=== PATIENT | male | born 1980 | race Caucasian/White ===

== ENCOUNTER 2016-10-01 11:22 | Emergency (ER) | payer MEDICAID ==
[2016-10-01] MEDS ORDERED: Lidocaine 1% with EPINEPHrine 1:100,000 20 ML MDV INJECT ONE (11:47)
[2016-10-01] MEDS ORDERED: Ondansetron 4 MG/2 ML SDV IVPUSH ONE ×2 (11:57→12:52)
[2016-10-01] MEDS ORDERED: Sodium Chloride 0.9% 1,000 ML IV ONE ×2 (11:57→13:30)
[2016-10-01] MEDS ORDERED: Ketorolac 30 MG/ML SDV IVPUSH ONE (11:57)
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
[2016-10-01 12:42] LABS: CHLORIDE,CL 106 mmol/L (98-110); SODIUM,NA 140 mmol/L (136-146)
[2016-10-01] MEDS ORDERED: HYDROmorphone 2 MG/ML Syringe IVPUSH ONE ×2 (12:52→13:30)
[2016-10-01] MEDS ORDERED: cefTRIAXone 2 GM in Premix Bag 1 BAG IV ONE (13:30)
[2016-10-01 15:34] VITALS: BP 107/64
== END 2016-10-01 14:36 | disposition home or self-care (01) ==
LOC: EEVIPCON 11:22 → MW.ED 11:22
DX: L02.413 Cutaneous abscess of right upper limb (principal); F17.210 Nicotine dependence, cigarettes, uncomplicated; Z88.1 Allergy status to other antibiotic agents
CPT/HCPCS: 10060; 36415; 80053; 80305; 85025; 87040; 87070; 93005; 96361; 96365; 96375; 96376; 99284; J0696; J1170; J1885; J2405; J7040; 87077; 87186; 99283

== ENCOUNTER 2016-10-03 15:09 | Emergency (ER) | payer MEDICAID ==
--- NOTE | 2016-10-03 15:26 | EDM.PDOC ---
ED HPI GENERAL MEDICAL PROBLEM - General Chief Complaint: Upper Extremity Injury/Pain Stated Complaint: SWOLLEN HAND AND ARM, AFTER DRAINED ABCESS Time Seen by Provider: 10/03/16 15:11 - History of Present Illness INITIAL COMMENTS - FREE TEXT/NARRATIVE: HISTORY AND PHYSICAL: History of present illness: Patient is a 36-year-old male presents with concern of right upper remedy pain he was recently seen for an abscess secondary to IV drug abuse he had incision and drainage of an abscess which he states markedly improved but he is concerned about continued pain no fever chills nausea vomiting or other complaints Review of systems: As per history of present illness and below otherwise all systems reviewed and negative. Past medical history: As per history of present illness and as reviewed below otherwise noncontributory. Surgical history: As per history of present illness and as reviewed below otherwise noncontributory. Social history: No reported history of drug or alcohol abuse. Family history: As per history of present illness and as reviewed below otherwise noncontributory. Physical exam: HEENT: Atraumatic, normocephalic, pupils reactive, negative for conjunctival pallor or scleral icterus, mucous membranes moist, throat clear, neck supple, nontender, trachea midline. Lungs: Clear to auscultation, breath sounds equal bilaterally, chest nontender. Heart: S1S2, regular, negative for clicks, rubs, or JVD. Abdomen: Soft, nondistended, nontender. Negative for masses or hepatosplenomegaly. Negative for costovertebral tenderness. Pelvis: Stable nontender. Genitourinary: Deferred. Rectal: Deferred. Extremities: Wound in the antecubital area was recently incised and drained looks very good there is no erythema no induration no fluctuance CMS neurovascular is unremarkable Neuro: Awake, alert, oriented. Cranial nerves II through XII unremarkable. Cerebellum unremarkable. Motor and sensory unremarkable throughout. Exam nonfocal. Diagnostics: X-ray right elbow forearm CBC CMP Therapeutics: None Impression: #1 history of IV drug abuse #2 wound recheck status post incision and drainage cutaneous abscess #3 right upper extremity pain Definitive disposition and diagnosis as appropriate pending reevaluation and review of above. - Related Data Allergies Allergy/AdvReac Type Severity Reaction Status Date / Time azithromycin [From Zithromax] Allergy Anaphylactic Verified 10/03/16 15:21 Shock Home Meds: Home Meds Sulfamethoxazole/Trimethoprim [Bactrim Ds Tablet] 1 each PO BID #20 tablet 10/01 [Rx] Past Medical History - Past Health History Medical/Surgical History: Denies Medical/Surgical History Social & Family History - Family History Family Medical History: Noncontributory - Tobacco Use Smoking Status *Q: Current Every Day Smoker Years of Tobacco use: 20 Packs/Tins Daily: 1 - Recreational Drug Use Recreational Drug Use: No Review of Systems - Review of Systems Review Of Systems: ROS reveals no pertinent complaints other than HPI. Trauma Exam - Physical Exam Exam: See Below (See dictation) Course - Orders/Labs/Meds Orders: Active Orders 24 hr Category Date Time Status Elbow 2V Rt [CR] Stat Exams 10/03/16 15:21 Ordered Forearm 2V Rt [CR] Stat Exams 10/03/16 15:21 Ordered CBC WITH AUTO DIFF [HEME] Stat Lab 10/03/16 15:21 Ordered COMPREHENSIVE METABOLIC PN,CMP [CHEM] Stat Lab 10/03/16 15:21 Ordered Departure - Departure Time of Disposition: 15:25 Disposition: Home, Self-Care 01 Condition: good Clinical Impression: Drug abuse, Wound check, abscess - Discharge Information Forms: ED Department Discharge Additional Instructions: The following information is given to patients seen in the emergency department who are being discharged to home. This information is to outline your options for follow-up care. We provide all patients seen in our emergency department with a follow-up referral. The need for follow-up, as well as the timing and circumstances, are variable depending upon the specifics of your emergency department visit. If you don't have a primary care physician on staff, we will provide you with a referral. We always advise you to contact your personal physician following an emergency department visit to inform them of the circumstance of the visit and for follow-up with them and/or the need for any referrals to a consulting specialist. The emergency department will also refer you to a specialist when appropriate. This referral assures that you have the opportunity for followup care with a specialist. All of these measure are taken in an effort to provide you with optimal care, which includes your followup. Under all circumstances we always encourage you to contact your private physician who remains a resource for coordinating your care. When calling for followup care, please make the office aware that this follow-up is from your recent emergency room visit. If for any reason you are refused follow-up, please contact the [facility] emergency department at and asked to speak to the emergency department charge nurse. ESTEBAN [facility] [address] [place] [id number] Continue current meds followup primary medical doctor in our clinic above as discussed return as needed as discussed - My Orders Last 24 Hours: My Active Orders 10/03/16 15:21 Elbow 2V Rt [CR] Stat Forearm 2V Rt [CR] Stat CBC WITH AUTO DIFF [HEME] Stat COMPREHENSIVE METABOLIC PN,CMP [CHEM] Stat - Assessment/Plan Last 24 Hours: My Active Orders 10/03/16 15:21 Elbow 2V Rt [CR] Stat Forearm 2V Rt [CR] Stat CBC WITH AUTO DIFF [HEME] Stat COMPREHENSIVE METABOLIC PN,CMP [CHEM] Stat
[2016-10-03 16:09] LABS: CHLORIDE,CL 109 mmol/L (98-110); SODIUM,NA 141 mmol/L (136-146)
[2016-10-03 16:29] VITALS: BP 133/79
--- NOTE | 2016-10-07 09:58 | CR ---
EXAM DATE: 10/03/16 PATIENT'S AGE: 36 Patient: FEDE ABDALLA Facility: [place], [place] Site . Site : 1980 Study: XRay Extremity Right Forearm [id number]/26/[id number] 3:59:54 PM Ordering Physician: Alice Bell Final Report: RIGHT ELBOW AND FOREARM INDICATION: Abscess drainage 2 days ago. Increased pain. COMPARISON: None. FINDINGS/IMPRESSION: Right elbow, 2 views and right forearm, 2 views. No acute fracture, dislocation, or other acute osseous abnormality identified at the right elbow or involving the right forearm. No evidence of osteomyelitis. No findings to suggest an elbow joint effusion. No soft tissue gas collections. Incidental minimal spurring at the triceps tendon insertion on the olecranon and postoperative changes involving the right 5th metacarpal. Dictated by Domenico Stratton MD @ 10/03/2016 4:12:15 PM Dictated by: Domenico Stratton MD @ 10/03/2016 16:13:26 (Electronic Signature) Report Signed by Proxy. EZE
--- NOTE | 2016-10-07 09:59 | CR ---
EXAM DATE: 10/03/16 PATIENT'S AGE: 36 Patient: FEDE ABDALLA Facility: [place], [place] Site . Site : 1980 Study: XRay Extremity Right Elbow [id number]/26/[id number] 4:01:11 PM Ordering Physician: Alice Bell Final Report: RIGHT ELBOW AND FOREARM INDICATION: Abscess drainage 2 days ago. Increased pain. COMPARISON: None. FINDINGS/IMPRESSION: Right elbow, 2 views and right forearm, 2 views. No acute fracture, dislocation, or other acute osseous abnormality identified at the right elbow or involving the right forearm. No evidence of osteomyelitis. No findings to suggest an elbow joint effusion. No soft tissue gas collections. Incidental minimal spurring at the triceps tendon insertion on the olecranon and postoperative changes involving the right 5th metacarpal. Dictated by Domenico Stratton MD @ 10/03/2016 4:12:15 PM Dictated by: Domenico Stratton MD @ 10/03/2016 16:13:07 (Electronic Signature) Report Signed by Proxy. EZE
== END 2016-10-03 16:27 | disposition home or self-care (01) ==
LOC: MW.ED 15:09
DX: L02.413 Cutaneous abscess of right upper limb (principal); Z51.89 Encounter for other specified aftercare; Z87.898 Personal history of other specified conditions; F17.210 Nicotine dependence, cigarettes, uncomplicated; Z88.1 Allergy status to other antibiotic agents
CPT/HCPCS: 36415; 73070-26-RT; 73070-RT; 73090-26-RT; 73090-RT; 80053; 85025; 99282; 99283

== ENCOUNTER 2016-10-18 18:02 | Emergency (ER) | payer MEDICAID ==
[2016-10-18] MEDS ORDERED: Ketorolac 30 MG/ML SDV IVPUSH ONE (18:19)
[2016-10-18] MEDS ORDERED: Prochlorperazine 10 MG/2 ML SDV IM ONE (18:19)
[2016-10-18] MEDS ORDERED: Sodium Chloride 0.9% 2.5 ML Syringe FLUSH PRN (18:19)
[2016-10-18] MEDS ORDERED: diphenhydrAMINE 50 MG/ML SDV IVPUSH ONE (18:19)
[2016-10-18] MEDS ORDERED: Sodium Chloride 0.9% 1,000 ML IV ONE (18:19)
[2016-10-18] MEDS ORDERED: Sodium Chloride 0.9% 10 ML Syringe FLUSH PRN (18:19)
--- NOTE | 2016-10-18 18:24 | EDM.PDOC ---
ED HPI GENERAL MEDICAL PROBLEM - General Chief Complaint: Headache Stated Complaint: PT HAS MIGRAINE Time Seen by Provider: 10/18/16 18:20 Source of Information: Reports: Patient History Limitations: Reports: No Limitations - History of Present Illness INITIAL COMMENTS - FREE TEXT/NARRATIVE: HISTORY AND PHYSICAL: []36-year-old male presenting with headache from the right occipital extending around his ear to the back of his right eye History of Present Illness: []Headache started this morning and has gotten worse Has been vomiting Light hurts his eyes Patient has history of drug abuse states that he is now been clean for the last month He states he has a job now at [employer] Review of Systems: As per history of present illness and below otherwise all systems reviewed and negative. Past medical history: As per history of present illness and as reviewed below otherwise noncontributory. Surgical history: As per history of present illness and as reviewed below otherwise noncontributory. Social history: No reported history of drug or alcohol abuse. Family history: As per history of present illness and as reviewed below otherwise noncontributory. Physical exam: Alert oriented answering questions appropriately, he is photophobic. HEENT: Atraumatic, normocehpalic, pupils reactive, negative for conjunctival pallor or scleral icterus, mucous membranes dry, throat clear, neck supple, nontender, trachea midline. Disc is sharp. No hemorrhage noted posteriorly. Vein to Artery ratio is appropriate Lungs: Clear to auscultation, breath sounds equal bilaterally, chest non tender. Heart: S1S2, regular, negative for clicks, rubs, or JVD. Abdomen: Soft, nondistended, nontender. Negative for masses or hepatossplenmegaly. Negative for costovertebral tenderness. Pelvis: Deferred. Genitourinary: Deferred. Rectal: Deferred Extremities: Atraumatic, negative for cords or calf pain. Well-healed scars and old abscess to arms no new track mohamud are noted. Neurovascular unremarkable. Neuro: Awake, alert, oriented. Cranial nerves II through XII unremarkable. Cerebellum unremarkable. Motor and sensory unremarkable throughout. Exam nonfocal. Patient no longer has nausea is relaxing more will give him some Ativan and then send him home he may take Excedrin Migraine as directed on the bottle Diagnostics: [] Therapeutics: [1 L normal saline, Compazine, Toradol and Benadryl,Ativan,] Impression: [Migraine headache] Plan: [Home rest Excedrin Migraine on the bottle ] Definitive disposition and diagnosis as appropriate pending reevaluation and review of above. Onset: Today, Sudden Duration: Hour(s): Location: Reports: Head Quality: Reports: Throbbing Improves with: Reports: None Worsens with: Reports: None Associated Symptoms: Reports: Nausea/Vomiting Treatments CODE AND TEST CLERK: Reports: Aspirin headache Pain Score (Numeric/FACES): 8 - Related Data Allergies Allergy/AdvReac Type Severity Reaction Status Date / Time azithromycin [From Zithromax] Allergy Anaphylactic Verified 10/18/16 18:10 Shock grapefruit Allergy Swelling Verified 10/18/16 18:10 Home Meds: Home Meds . [No Known Home Meds] 10/18/16 [History] Past Medical History - Past Health History Medical/Surgical History: Denies Medical/Surgical History HEENT History: Reports: None Cardiovascular History: Reports: None Respiratory History: Reports: None Gastrointestinal History: Reports: None Genitourinary History: Reports: None Musculoskeletal History: Reports: Fracture Neurological History: Reports: None Psychiatric History: Reports: Anxiety, PTSD Endocrine/Metabolic History: Reports: None Hematologic History: Reports: None Immunologic History: Reports: None Oncologic (Cancer) History: Reports: None Dermatologic History: Reports: None - Infectious Disease History Infectious Disease History: Reports: None - Past Surgical History Head Surgeries/Procedures: Reports: None Musculoskeletal Surgical History: Reports: ORIF Social & Family History - Family History Family Medical History: Noncontributory - Tobacco Use Smoking Status *Q: Current Every Day Smoker Years of Tobacco use: 20 Packs/Tins Daily: 0.5 - Caffeine Use Caffeine Use: Reports: Coffee, Soda - Recreational Drug Use Recreational Drug Use: Yes Drug Use in Last 12 Months: Yes Recreational Drug Type: Reports: Methamphetamine ED ROS GENERAL - Review of Systems Review Of Systems: ROS reveals no pertinent complaints other than HPI. - Physical Exam Exam: See Below (see dictation) Course - Vital Signs Last Recorded V/S: Last Vital Signs Temp 36.1 C 10/18/16 18:10 Pulse 86 10/18/16 18:10 Resp 16 10/18/16 18:10 BP 123/81 10/18/16 18:10 Pulse Ox 98 10/18/16 18:10 - Orders/Labs/Meds Orders: Active Orders 24 hr Category Date Time Status LORazepam [Ativan] Med 10/18/16 18:52 Once 1 mg IVPUSH ONETIME ONE Sodium Chloride 0.9% [Normal Saline] 1,000 ml Med 10/18/16 18:19 Ordered IV STAT Sodium Chloride 0.9% [Saline Flush] Med 10/18/16 18:19 Ordered 10 ml FLUSH ASDIRECTED PRN Sodium Chloride 0.9% [Saline Flush] Med 10/18/16 18:19 Ordered 2.5 ml FLUSH ASDIRECTED PRN Saline Lock Insert [OM.PC] Stat Oth 10/18/16 18:19 Ordered Medication Orders Sodium Chloride (Normal Saline) 1,000 mls @ 999 mls/hr IV STAT ONE Stop: 10/18/16 19:19 Last Admin: 10/18/16 18:23 Dose: 999 mls/hr Lorazepam (Ativan) 1 mg IVPUSH ONETIME ONE Stop: 10/18/16 18:53 Sodium Chloride (Saline Flush) 10 ml FLUSH ASDIRECTED PRN PRN Reason: Keep Vein Open Sodium Chloride (Saline Flush) 2.5 ml FLUSH ASDIRECTED PRN PRN Reason: Keep Vein Open Meds: Medications Generic Name Dose Route Start Last Admin Trade Name Freq PRN Reason Stop Dose Admin Sodium Chloride 1,000 mls @ 999 mls/hr 10/18/16 18:19 10/18/16 18:23 Normal Saline IV 10/18/16 19:19 999 mls/hr STAT ONE Administration Lorazepam 1 mg 10/18/16 18:52 Ativan IVPUSH 10/18/16 18:53 ONETIME ONE Sodium Chloride 10 ml 10/18/16 18:19 Saline Flush FLUSH ASDIRECTED PRN Keep Vein Open Sodium Chloride 2.5 ml 10/18/16 18:19 Saline Flush FLUSH ASDIRECTED PRN Keep Vein Open Discontinued Medications Generic Name Dose Route Start Last Admin Trade Name Freq PRN Reason Stop Dose Admin Diphenhydramine HCl 50 mg 10/18/16 18:19 10/18/16 18:26 Benadryl IVPUSH 10/18/16 18:20 50 mg ONETIME ONE Administration Ketorolac Tromethamine 30 mg 10/18/16 18:19 10/18/16 18:30 Toradol IVPUSH 10/18/16 18:20 30 mg ONETIME ONE Administration Prochlorperazine Edisylate 10 mg 10/18/16 18:19 10/18/16 18:33 Compazine IM 10/18/16 18:20 10 mg ONETIME ONE Administration Departure - Departure Time of Disposition: 18:58 Disposition: Home, Self-Care 01 Condition: good Clinical Impression: Migraine - Discharge Information Instructions: Recurrent Migraine Headache, [id number] Forms: ED Department Discharge Additional Instructions: The following information is given to patients seen in the emergency department who are being discharged to home. This information is to outline your options for follow-up care. We provide all patients seen in our emergency department with a follow-up referral. The need for follow-up, as well as the timing and circumstances, are variable depending upon the specifics of your emergency department visit. If you don't have a primary care physician on staff, we will provide you with a referral. We always advise you to contact your personal physician following an emergency department visit to inform them of the circumstance of the visit and for follow-up with them and/or the need for any referrals to a consulting specialist. The emergency department will also refer you to a specialist when appropriate. This referral assures that you have the opportunity for followup care with a specialist. All of these measure are taken in an effort to provide you with optimal care, which includes your followup. Under all circumstances we always encourage you to contact your private physician who remains a resource for coordinating your care. When calling for followup care, please make the office aware that this follow-up is from your recent emergency room visit. If for any reason you are refused follow-up, please contact the [facility] emergency department at and asked to speak to the emergency department charge nurse. He may take Excedrin Migraine [id number] as directed on the bottle Off work note has been written for tonight Follow-up with her primary care provider - My Orders Last 24 Hours: My Active Orders 10/18/16 18:19 Sodium Chloride 0.9% [Normal Saline] 1,000 ml IV STAT Sodium Chloride 0.9% [Saline Flush] 10 ml FLUSH ASDIRECTED PRN Sodium Chloride 0.9% [Saline Flush] 2.5 ml FLUSH ASDIRECTED PRN Saline Lock Insert [OM.PC] Stat 10/18/16 18:52 LORazepam [Ativan] 1 mg IVPUSH ONETIME ONE - Assessment/Plan Last 24 Hours: My Active Orders 10/18/16 18:19 Sodium Chloride 0.9% [Normal Saline] 1,000 ml IV STAT Sodium Chloride 0.9% [Saline Flush] 10 ml FLUSH ASDIRECTED PRN Sodium Chloride 0.9% [Saline Flush] 2.5 ml FLUSH ASDIRECTED PRN Saline Lock Insert [OM.PC] Stat 10/18/16 18:52 LORazepam [Ativan] 1 mg IVPUSH ONETIME ONE
[2016-10-18] MEDS ORDERED: LORazepam 2 MG/ML MDV IVPUSH ONE (18:52)
[2016-10-18 21:12] VITALS: BP 133/82
== END 2016-10-18 19:20 | disposition home or self-care (01) ==
LOC: MW.ED 18:02
DX: G43.909 Migraine, unspecified, not intractable, without status migrainosus (principal); F17.210 Nicotine dependence, cigarettes, uncomplicated; Z88.1 Allergy status to other antibiotic agents; Z91.018 Allergy to other foods; Z98.890 Other specified postprocedural states
CPT/HCPCS: 96361; 96372; 96374; 96375; 99283; J0780; J1200; J1885; J2060; J7040

== ENCOUNTER 2017-03-21 12:49 | Emergency (ER) | payer SELFPAY ==
[2017-03-21 12:57] VITALS: BP 155/84
[2017-03-21] MEDS ORDERED: Lidocaine 2% Viscous Solution 15 ML Cup PO ONE (13:09)
[2017-03-21] MEDS ORDERED: Benzocaine 20% Topical Spray UD MUCMEM ONE (13:09)
--- NOTE | 2017-03-21 13:10 | EDM.PDOC ---
ED HPI GENERAL MEDICAL PROBLEM - General Chief Complaint: General Stated Complaint: ORAL ISSUES Time Seen by Provider: 03/21/17 13:05 Source of Information: Reports: Patient History Limitations: Reports: No Limitations - History of Present Illness INITIAL COMMENTS - FREE TEXT/NARRATIVE: History of present illness: [37-year-old male comes in with a fractured tooth and complaints of dental abscess. Patient indicates that he has pressure in his nose and that he feels that he has a significant abscess over the fractured tooth, which is in the left upper cheek area] Review of systems: As per history of present illness and below otherwise all systems reviewed and negative. Past medical history: As per history of present illness and as reviewed below otherwise noncontributory. Surgical history: As per history of present illness and as reviewed below otherwise noncontributory. Social history: No reported history of drug or alcohol abuse. Family history: As per history of present illness and as reviewed below otherwise noncontributory. Physical exam: HEENT: Atraumatic, normocephalic, pupils reactive, negative for conjunctival pallor or scleral icterus, mucous membranes moist, throat clear, neck supple, nontender, trachea midline. Lungs: Clear to auscultation, breath sounds equal bilaterally, chest nontender. Heart: S1S2, regular, negative for clicks, rubs, or JVD. Abdomen: Soft, nondistended, nontender. Negative for masses or hepatosplenomegaly. Negative for costovertebral tenderness. Pelvis: Stable nontender. Genitourinary: Deferred. Rectal: Deferred. Extremities: Atraumatic, negative for cords or calf pain. Neurovascular unremarkable. Neuro: Awake, alert, oriented. Cranial nerves II through XII unremarkable. Cerebellum unremarkable. Motor and sensory unremarkable throughout. Exam nonfocal. Global assessment is benign save the subjective complaint as noted in history of present illness Diagnostics: [] Therapeutics: [] Impression: [Dental caries, dental fractures] Plan: [Dental balls antibiotics] Definitive disposition and diagnosis as appropriate pending reevaluation and review of above. left upper dental Pain Score (Numeric/FACES): 9 - Related Data Allergies Allergy/AdvReac Type Severity Reaction Status Date / Time azithromycin [From Zithromax] Allergy Anaphylactic Verified 03/21/17 12:57 Shock grapefruit Allergy Swelling Verified 03/21/17 12:57 Home Meds: Home Meds Amoxicillin/Potassium Clav [Augmentin 875-125 Tablet] 1 each PO BID #20 tablet 03/21/17 [Rx] Past Medical History - Past Health History Medical/Surgical History: Denies Medical/Surgical History HEENT History: Reports: None Cardiovascular History: Reports: None Respiratory History: Reports: None Gastrointestinal History: Reports: None Genitourinary History: Reports: None Musculoskeletal History: Reports: Fracture Neurological History: Reports: None Psychiatric History: Reports: Anxiety, PTSD Endocrine/Metabolic History: Reports: None Hematologic History: Reports: None Immunologic History: Reports: None Oncologic (Cancer) History: Reports: None Dermatologic History: Reports: None - Infectious Disease History Infectious Disease History: Reports: Chicken Pox - Past Surgical History Head Surgeries/Procedures: Reports: None Musculoskeletal Surgical History: Reports: ORIF Other Musculoskeletal Surgeries/Procedures:: R 5th metacarpal Social & Family History - Family History Family Medical History: Noncontributory - Tobacco Use Smoking Status *Q: Current Every Day Smoker Years of Tobacco use: 22 Packs/Tins Daily: 1 - Caffeine Use Caffeine Use: Reports: Coffee, Soda - Recreational Drug Use Recreational Drug Use: Yes Drug Use in Last 12 Months: Yes Recreational Drug Type: Reports: Methamphetamine Recreational Drug Use Frequency: Not Used In Over 5 Months ED ROS GENERAL - Review of Systems Review Of Systems: See Below (See history of present illness) ED EXAM, GENERAL - Physical Exam Exam: See Below (See history of present illness) Course - Vital Signs Last Recorded V/S: Last Vital Signs Temp 35.0 C L 03/21/17 12:55 Pulse 116 H 03/21/17 12:55 Resp 20 03/21/17 12:55 BP 155/84 H 03/21/17 12:55 Pulse Ox 98 03/21/17 12:55 Departure - Departure Time of Disposition: 13:09 Disposition: Home, Self-Care 01 Condition: Good Clinical Impression: Dental abscess - Discharge Information Referrals: PCP,None [Primary Care Provider] - Additional Instructions: The following information is given to patients seen in the emergency department who are being discharged to home. This information is to outline your options for follow-up care. We provide all patients seen in our emergency department with a follow-up referral. The need for follow-up, as well as the timing and circumstances, are variable depending upon the specifics of your emergency department visit. If you don't have a primary care physician on staff, we will provide you with a referral. We always advise you to contact your personal physician following an emergency department visit to inform them of the circumstance of the visit and for follow-up with them and/or the need for any referrals to a consulting specialist. The emergency department will also refer you to a specialist when appropriate. This referral assures that you have the opportunity for follow-up care with a specialist. All of these measure are taken in an effort to provide you with optimal care, which includes your follow-up. Under all circumstances we always encourage you to contact your private physician who remains a resource for coordinating your care. When calling for follow-up care, please make the office aware that this follow-up is from your recent emergency room visit. If for any reason you are refused follow-up, please contact the [facility] Emergency Department at and asked to speak to the emergency department charge nurse. Take medication as directed Follow-up with dentist I[facility]AN Return to ED as needed as discussed
== END 2017-03-21 13:26 | disposition home or self-care (01) ==
LOC: MW.ED 12:49
DX: K04.7 Periapical abscess without sinus (principal); K02.9 Dental caries, unspecified; K03.81 Cracked tooth; F17.210 Nicotine dependence, cigarettes, uncomplicated; Z88.1 Allergy status to other antibiotic agents
CPT/HCPCS: 99282; A9270

== ENCOUNTER 2017-07-05 03:49 | Emergency (ER) | payer MEDICAID ==
--- NOTE | 2017-07-05 04:14 | EDM.PDOC ---
ED HPI GENERAL MEDICAL PROBLEM - General Chief Complaint: General Stated Complaint: ABCESSED TOOTH Time Seen by Provider: 07/05/17 04:13 Source of Information: Reports: Patient - History of Present Illness INITIAL COMMENTS - FREE TEXT/NARRATIVE: HISTORY AND PHYSICAL: History of present illness: [Patient presents with dental pain 8 out of 10, he has dental caries with associated abscess, he states prior to bed tonight he was enjoying his normal state of health pain free, he awoke with 8 out of 10 pain and facial swelling He denies fever nausea vomiting chills sweats ] Review of systems: As per history of present illness and below otherwise all systems reviewed and negative. Past medical history: As per history of present illness and as reviewed below otherwise noncontributory. Surgical history: As per history of present illness and as reviewed below otherwise noncontributory. Social history: No reported history of drug or alcohol abuse. Family history: As per history of present illness and as reviewed below otherwise noncontributory. Physical exam: HEENT: Atraumatic, normocephalic, pupils reactive, negative for conjunctival pallor or scleral icterus, mucous membranes moist, throat clear, neck supple, nontender, trachea midline. Poor dentition with dental caries and abscess right upper Lungs: Clear to auscultation, breath sounds equal bilaterally, chest nontender. Heart: S1S2, regular, negative for clicks, rubs, or JVD. Abdomen: Soft, nondistended, nontender. Negative for masses or hepatosplenomegaly. Negative for costovertebral tenderness. Pelvis: Stable nontender. Genitourinary: Deferred. Rectal: Deferred. Extremities: Atraumatic, negative for cords or calf pain. Neurovascular unremarkable. Neuro: Awake, alert, oriented. Cranial nerves II through XII unremarkable. Cerebellum unremarkable. Motor and sensory unremarkable throughout. Exam nonfocal. Diagnostics: [Clinical] Therapeutics: [Morphine 2 mg IM Rocephin 1000 mg IM Cleocin 300 mg by mouth 3 times a day #30 no refill] Impression: [Dental abscess secondary to dental caries] Definitive disposition and diagnosis as appropriate pending reevaluation and review of above. Right Upper Tooth/Teeth Pain Score (Numeric/FACES): 8 - Related Data Allergies Allergy/AdvReac Type Severity Reaction Status Date / Time azithromycin [From Zithromax] Allergy Anaphylactic Verified 03/21/17 12:57 Shock grapefruit Allergy Swelling Verified 03/21/17 12:57 Home Meds: Home Meds . [No Known Home Meds] 07/05/17 [History] Past Medical History - Past Health History Medical/Surgical History: Denies Medical/Surgical History HEENT History: Reports: None Cardiovascular History: Reports: None Respiratory History: Reports: None Gastrointestinal History: Reports: None Genitourinary History: Reports: None Musculoskeletal History: Reports: Fracture Neurological History: Reports: None Psychiatric History: Reports: Anxiety, PTSD Endocrine/Metabolic History: Reports: None Hematologic History: Reports: None Immunologic History: Reports: None Oncologic (Cancer) History: Reports: None Dermatologic History: Reports: None - Infectious Disease History Infectious Disease History: Reports: Chicken Pox - Past Surgical History Head Surgeries/Procedures: Reports: None Musculoskeletal Surgical History: Reports: ORIF Other Musculoskeletal Surgeries/Procedures:: R 5th metacarpal Social & Family History - Family History Family Medical History: Noncontributory - Tobacco Use Smoking Status *Q: Current Every Day Smoker Years of Tobacco use: 22 Packs/Tins Daily: 0.5 - Caffeine Use Caffeine Use: Reports: Coffee - Recreational Drug Use Recreational Drug Use: No Drug Use in Last 12 Months: Yes Recreational Drug Type: Reports: Methamphetamine Recreational Drug Use Frequency: Not Used In Over 5 Months ED ROS GENERAL - Review of Systems Review Of Systems: ROS reveals no pertinent complaints other than HPI. ED EXAM, GENERAL - Physical Exam Exam: See Below Course - Vital Signs Last Recorded V/S: Last Vital Signs Temp 97.7 F 07/05/17 03:57 Pulse 95 07/05/17 03:57 Resp 20 07/05/17 03:57 BP 121/86 07/05/17 03:57 Pulse Ox 98 07/05/17 03:57 - Orders/Labs/Meds Orders: Active Orders 24 hr Category Date Time Status Morphine Med 07/05/17 04:32 Once 2 mg IM ONETIME ONE cefTRIAXone [Rocephin] 1,000 mg Med 07/05/17 04:33 Ordered Lidocaine 1% [Xylocaine-MPF 1%] 4 ml IM ONETIME Departure - Departure Time of Disposition: 04:34 Disposition: Home, Self-Care 01 Condition: Good Clinical Impression: Dental abscess - Discharge Information Referrals: PCP,None [Primary Care Provider] - Forms: ED Department Discharge Additional Instructions: Medication as prescribed Return if symptoms persist or worsen Follow-up with dentist as soon as possible Provide list of area dentists The following information is given to patients seen in the emergency department who are being discharged to home. This information is to outline your options for follow-up care. We provide all patients seen in our emergency department with a follow-up referral. The need for follow-up, as well as the timing and circumstances, are variable depending upon the specifics of your emergency department visit. If you don't have a primary care physician on staff, we will provide you with a referral. We always advise you to contact your personal physician following an emergency department visit to inform them of the circumstance of the visit and for follow-up with them and/or the need for any referrals to a consulting specialist. The emergency department will also refer you to a specialist when appropriate. This referral assures that you have the opportunity for follow-up care with a specialist. All of these measure are taken in an effort to provide you with optimal care, which includes your follow-up. Under all circumstances we always encourage you to contact your private physician who remains a resource for coordinating your care. When calling for follow-up care, please make the office aware that this follow-up is from your recent emergency room visit. If for any reason you are refused follow-up, please contact the [facility] emergency department at and asked to speak to the emergency department charge nurse. - My Orders Last 24 Hours: My Active Orders 07/05/17 04:32 Morphine 2 mg IM ONETIME ONE 07/05/17 04:33 cefTRIAXone [Rocephin] 1,000 mg Lidocaine 1% [Xylocaine-MPF 1%] 4 ml IM ONETIME - Assessment/Plan Last 24 Hours: My Active Orders 07/05/17 04:32 Morphine 2 mg IM ONETIME ONE 07/05/17 04:33 cefTRIAXone [Rocephin] 1,000 mg Lidocaine 1% [Xylocaine-MPF 1%] 4 ml IM ONETIME
[2017-07-05] MEDS ORDERED: Morphine 2 MG/ML Syringe IM ONE (04:32)
[2017-07-05] MEDS ORDERED: cefTRIAXone 1,000 MG in Lidocaine 1% 4 ML IM ONE (04:33)
[2017-07-05] MEDS ORDERED: HYDROmorphone 1 MG/ML Syringe IM ONE (05:08)
[2017-07-05 05:39] VITALS: BP 153/92
== END 2017-07-05 05:36 | disposition home or self-care (01) ==
LOC: MW.ED 03:49
DX: K04.7 Periapical abscess without sinus (principal); F17.210 Nicotine dependence, cigarettes, uncomplicated; K02.9 Dental caries, unspecified; Z88.1 Allergy status to other antibiotic agents; Z91.018 Allergy to other foods
CPT/HCPCS: 40800; 96372; 99282; J0696; J1170; J2270; 99283

== ENCOUNTER 2017-08-31 14:43 | Emergency (ER) | payer BC ==
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
--- NOTE | 2017-08-31 15:32 | CR ---
EXAMINATION: Left hand, third digit HISTORY: Injury COMPARISON: None TECHNIQUE: 3 views FINDINGS/IMPRESSION: There is no acute osseous abnormality, dislocation, or fracture. Bone mineraliza tion and joint spaces appear normal.
[2017-08-31 18:00] VITALS: BP 139/95
== END 2017-08-31 16:21 | disposition home or self-care (01) ==
LOC: MW.ED 14:43
DX: S67.193A Crushing injury of left middle finger, initial encounter (principal); F17.210 Nicotine dependence, cigarettes, uncomplicated; Z88.1 Allergy status to other antibiotic agents; Z91.018 Allergy to other foods; W23.1XXA Caught, crushed, jammed, or pinched between stationary objects, initial encounter
CPT/HCPCS: 73140-26-F2; 73140-F2; 99282; 99283

== ENCOUNTER 2018-01-05 09:11 | Emergency (ER) | payer BC ==
[2018-01-05] MEDS ORDERED: Sodium Chloride 0.9% 1,000 ML IV ONE (09:32)
[2018-01-05] MEDS ORDERED: Pantoprazole 40 MG Vial IVPUSH ONE (09:32)
[2018-01-05] MEDS ORDERED: Ondansetron 4 MG/2 ML SDV IVPUSH ONE (09:33)
[2018-01-05] MEDS ORDERED: Sodium Chloride 0.9% 2.5 ML Syringe FLUSH PRN (09:33)
[2018-01-05] MEDS ORDERED: Sodium Chloride 0.9% 10 ML Syringe FLUSH PRN (09:33)
[2018-01-05] MEDS ORDERED: Morphine 2 MG/ML Syringe IVPUSH ONE (09:37)
--- NOTE | 2018-01-05 09:37 | EDM.PDOC ---
ED HPI GENERAL MEDICAL PROBLEM - General Chief Complaint: Gastrointestinal Problem Stated Complaint: VOMITING Time Seen by Provider: 01/05/18 09:28 - History of Present Illness INITIAL COMMENTS - FREE TEXT/NARRATIVE: HISTORY AND PHYSICAL: History of present illness: The patient is a 37-year-old male who denies any previous GI history and presents with 3 days of nausea and vomiting with upper abdominal pain that has since progressed to inability to tolerate by mouth and diarrhea. The patient says that 3 days ago the symptoms started first with nausea and then vomiting of Sweet's that he had or the. He thought the vomitus looked brown but since that time his vomiting has not been brown black or bloody. He started having diarrhea the next day, 2 days ago, which is watery and profuse and is dark in color but no blood. The abdominal pain is mostly in the midline in the upper abdomen area and is not lower abdominal pain. He has no chest pain or shortness of breath and he has not taken any [id number] meds. He has no prior history of food intolerance or taking a lot of antacids for heartburn or reflux pain. The patient has no flank pain or urinary complaints. He denies recent alcohol use or drug use. 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 The patient does tell me that he does a lot of lifting and moving at his job and does take a lot of aspirin and nonsteroidals for discomfort Review of systems: As per history of present illness and below otherwise all systems reviewed and negative. Past medical history: As per history of present illness and as reviewed below otherwise noncontributory. Surgical history: As per history of present illness and as reviewed below otherwise noncontributory. Social history: No reported history of drug or alcohol abuse. Family history: As per history of present illness and as reviewed below otherwise noncontributory. Physical exam: General: Well-developed well-nourished thin man whose nontoxic but looks uncomfortable in the room. Vital signs were noted by me HEENT: Atraumatic, normocephalic, ve, negative for conjunctival pallor or scleral icterus, mucous membranes tacky, throat clear, neck supple, nontender, trachea midline. Lungs: Clear to auscultation, breath sounds equal bilaterally, chest nontender. No worker breathing wheezing or stridor Heart: S1S2, regular rate and rhythm no overt murmurs Abdomen: Soft, nondistended, there is discrete epigastric tenderness with palpation with some voluntary guarding but no involuntary guarding or rebound. Bowel sounds are normoactive Negative for masses or hepatosplenomegaly. Negative for costovertebral tenderness. Pelvis: Deferred Genitourinary: Deferred. Rectal: Exam was not performed but Hemoccult was performed on stool produced. Please see below Extremities: Atraumatic, full range of motion without deficits. Neurovascular unremarkable. Neuro: Awake, alert, oriented. Cranial nerves II through XII unremarkable. Cerebellum unremarkable. Motor and sensory unremarkable throughout. Exam nonfocal. Diagnostics: CBC CMP amylase lipase INR UA H. pylori abdominal and chest x-rays EtOH level Therapeutics: IV fluids Zofran and Protonix morphine Patient produced a stool sample here which was mushy and light brown in color and was Hemoccult negative. He does not let the diarrhea today. I will not send this for testing further Patient is a relative all testing results including his blood alcohol level and the need to refrain from alcohol and caffeine use when he is feeling ill. Also advised him to increase hydration and eat a bland diet. I will give him Zofran and Protonix and Bentyl for home and advised close follow-up in the clinic. The patient does feel much improved but says that he doesn't want to try a by mouth challenge she just wants to go home and go to sleep. Impression: Gastritis/vomiting and diarrhea, recent alcohol use stable Definitive disposition and diagnosis as appropriate pending reevaluation and review of above. Bilateral Abdominal Pain Score (Numeric/FACES): 8 - Related Data Allergies Allergy/AdvReac Type Severity Reaction Status Date / Time azithromycin [From Zithromax] Allergy Anaphylactic Verified 01/05/18 09:23 Shock grapefruit Allergy Swelling Verified 01/05/18 09:23 Home Meds: Home Meds . [No Known Home Meds] 07/05/17 [History] Past Medical History - Past Health History Medical/Surgical History: Denies Medical/Surgical History HEENT History: Reports: None Cardiovascular History: Reports: None Respiratory History: Reports: None Gastrointestinal History: Reports: None Genitourinary History: Reports: None Musculoskeletal History: Reports: Fracture Neurological History: Reports: None Psychiatric History: Reports: Anxiety, PTSD Endocrine/Metabolic History: Reports: None Hematologic History: Reports: None Immunologic History: Reports: None Oncologic (Cancer) History: Reports: None Dermatologic History: Reports: None - Infectious Disease History Infectious Disease History: Reports: Chicken Pox - Past Surgical History Head Surgeries/Procedures: Reports: None Musculoskeletal Surgical History: Reports: ORIF Other Musculoskeletal Surgeries/Procedures:: R 5th metacarpal Social & Family History - Family History Family Medical History: Noncontributory - Tobacco Use Smoking Status *Q: Current Every Day Smoker Years of Tobacco use: 22 Packs/Tins Daily: 0.5 - Caffeine Use Caffeine Use: Reports: None - Recreational Drug Use Recreational Drug Use: No ED ROS GENERAL - Review of Systems Review Of Systems: ROS reveals no pertinent complaints other than HPI. ED EXAM, GENERAL - Physical Exam Exam: See Below (See dictation) Course - Vital Signs Last Recorded V/S: Last Vital Signs Temp 36.4 C 01/05/18 09:23 Pulse 64 01/05/18 10:21 Resp 16 01/05/18 10:21 BP 111/78 01/05/18 10:21 Pulse Ox 97 01/05/18 10:21 - Orders/Labs/Meds Orders: Active Orders 24 hr Category Date Time Status Fecal Occult Blood Collection [RC] ASDIRECTED Care 01/05/18 09:59 Active DRUG SCREEN, URINE [URCHEM] Stat Lab 01/05/18 09:34 Ordered UA W/MICROSCOPIC [URIN] Stat Lab 01/05/18 09:34 Ordered Sodium Chloride 0.9% [Saline Flush] Med 01/05/18 09:33 Active 10 ml FLUSH ASDIRECTED PRN Sodium Chloride 0.9% [Saline Flush] Med 01/05/18 09:33 Active 2.5 ml FLUSH ASDIRECTED PRN Saline Lock Insert [OM.PC] Stat Oth 01/05/18 09:32 Ordered Medication Orders Sodium Chloride (Saline Flush) 10 ml FLUSH ASDIRECTED PRN PRN Reason: Keep Vein Open Last Admin: 01/05/18 09:42 Dose: 10 ml Sodium Chloride (Saline Flush) 2.5 ml FLUSH ASDIRECTED PRN PRN Reason: Keep Vein Open Last Admin: 01/05/18 09:42 Dose: 2.5 ml Labs: Laboratory Tests 01/05/18 01/05/18 01/05/18 Range/Units 09:34 09:34 09:47 WBC 6.69 (4.0-11.0) K/uL RBC 5.08 (4.50-5.90) M/uL Hgb 16.0 (13.0-17.0) g/dL Hct 46.2 (38.0-50.0) % MCV 90.9 (80.0-98.0) fL MCH 31.5 (27.0-32.0) pg MCHC 34.6 (31.0-37.0) g/dL RDW Std Deviation 50.4 (28.0-62.0) fl RDW Coeff of Fernanda 15 (11.0-15.0) % Plt Count 238 (150-400) K/uL MPV 9.80 (7.40-12.00) fL Neut % (Auto) 59.1 (48.0-80.0) % Lymph % (Auto) 26.2 (16.0-40.0) % [place] % (Auto) 13.5 (0.0-15.0) % Eos % (Auto) 0.9 (0.0-7.0) % Baso % (Auto) 0.3 (0.0-1.5) % Neut # (Auto) 4.0 (1.4-5.7) K/uL Lymph # (Auto) 1.8 (0.6-2.4) K/uL [place] # (Auto) 0.9 H (0.0-0.8) K/uL Eos # (Auto) 0.1 (0.0-0.7) K/uL Baso # (Auto) 0.0 (0.0-0.1) K/uL Nucleated RBC % 0.0 /100WBC Nucleated RBCs # 0 K/uL INR Sodium (136-148) mmol/L Potassium (3.5-5.1) mmol/L Chloride (98-107) mmol/L Carbon Dioxide (21.0-32.0) mmol/L BUN (7.0-18.0) mg/dL Creatinine (0.8-1.3) mg/dL Est Cr Clr Drug Dosing Estimated GFR (MDRD) ml/min Glucose (74-106) mg/dL Calcium (8.5-10.1) mg/dL Total Bilirubin (0.2-1.0) mg/dL AST (15-37) IU/L ALT (14-63) IU/L Alkaline Phosphatase (46-116) U/L Total Protein (6.4-8.2) g/dL Albumin (3.4-5.0) g/dL Globulin (2.0-3.5) g/dL Albumin/Globulin Ratio (1.3-2.8) Amylase (25-115) U/L Lipase (73-393) U/L Urine Color YELLOW Urine Appearance CLEAR Urine pH 5.5 (5.0-8.0) Ur Specific Bruning 1.025 (1.001-1.035) Urine Protein NEGATIVE (NEGATIVE) mg/dL Urine Glucose (UA) NEGATIVE (NEGATIVE) mg/dL Urine Ketones TRACE H (NEGATIVE) mg/dL Urine Occult Blood TRACE-LYSED (NEGATIVE) Urine Nitrite NEGATIVE (NEGATIVE) Urine Bilirubin NEGATIVE (NEGATIVE) Urine Urobilinogen 0.2 (<2.0) EU/dL Ur Leukocyte Esterase NEGATIVE (NEGATIVE) Urine RBC 0-1 (0-2/HPF) Urine WBC 0-1 (0-5/HPF) Ur Epithelial Cells FEW (NONE-FEW) Urine Bacteria FEW (NEGATIVE) Urine Mucus MODERATE (NONE-MOD) Urine Opiates Screen NEGATIVE (NEGATIVE) Ur Oxycodone Screen NEGATIVE (NEGATIVE) Urine Methadone Screen NEGATIVE (NEGATIVE) Ur Barbiturates Screen NEGATIVE (NEGATIVE) Ur Phencyclidine Scrn NEGATIVE (NEGATIVE) Ur Amphetamine Screen NEGATIVE (NEGATIVE) U Methamphetamines Scrn NEGATIVE (NEGATIVE) U Benzodiazepines Scrn NEGATIVE (NEGATIVE) U Cocaine Metab Screen NEGATIVE (NEGATIVE) U Marijuana (THC) Screen POSITIVE (NEGATIVE) Ethyl Alcohol mg/dL H. pylori IgG Antibody (NEG) 01/05/18 01/05/18 01/05/18 Range/Units 09:47 09:47 09:47 WBC (4.0-11.0) K/uL RBC (4.50-5.90) M/uL Hgb (13.0-17.0) g/dL Hct (38.0-50.0) % MCV (80.0-98.0) fL MCH (27.0-32.0) pg MCHC (31.0-37.0) g/dL RDW Std Deviation (28.0-62.0) fl RDW Coeff of Fernanda (11.0-15.0) % Plt Count (150-400) K/uL MPV (7.40-12.00) fL Neut % (Auto) (48.0-80.0) % Lymph % (Auto) (16.0-40.0) % Cam[place] % (Auto) (0.0-15.0) % Eos % (Auto) (0.0-7.0) % Baso % (Auto) (0.0-1.5) % Neut # (Auto) (1.4-5.7) K/uL Lymph # (Auto) (0.6-2.4) K/uL Cam[place] # (Auto) (0.0-0.8) K/uL Eos # (Auto) (0.0-0.7) K/uL Baso # (Auto) (0.0-0.1) K/uL Nucleated RBC % /100WBC Nucleated RBCs # K/uL INR 0.98 Sodium 138 (136-148) mmol/L Potassium 4.6 (3.5-5.1) mmol/L Chloride 104 (98-107) mmol/L Carbon Dioxide 27.4 (21.0-32.0) mmol/L BUN 11 (7.0-18.0) mg/dL Creatinine 0.9 (0.8-1.3) mg/dL Est Cr Clr Drug Dosing TNP Estimated GFR (MDRD) > 60.0 ml/min Glucose 99 (74-106) mg/dL Calcium 8.8 (8.5-10.1) mg/dL Total Bilirubin 0.2 (0.2-1.0) mg/dL AST 29 (15-37) IU/L ALT 16 (14-63) IU/L Alkaline Phosphatase 55 (46-116) U/L Total Protein 8.0 (6.4-8.2) g/dL Albumin 4.4 (3.4-5.0) g/dL Globulin 3.6 H (2.0-3.5) g/dL Albumin/Globulin Ratio 1.2 L (1.3-2.8) Amylase 61 (25-115) U/L Lipase 103 (73-393) U/L Urine Color Urine Appearance Urine pH (5.0-8.0) Ur Specific Bruning (1.001-1.035) Urine Protein (NEGATIVE) mg/dL Urine Glucose (UA) (NEGATIVE) mg/dL Urine Ketones (NEGATIVE) mg/dL Urine Occult Blood (NEGATIVE) Urine Nitrite (NEGATIVE) Urine Bilirubin (NEGATIVE) Urine Urobilinogen (<2.0) EU/dL Ur Leukocyte Esterase (NEGATIVE) Urine RBC (0-2/HPF) Urine WBC (0-5/HPF) Ur Epithelial Cells (NONE-FEW) Urine Bacteria (NEGATIVE) Urine Mucus (NONE-MOD) Urine Opiates Screen (NEGATIVE) Ur Oxycodone Screen (NEGATIVE) Urine Methadone Screen (NEGATIVE) Ur Barbiturates Screen (NEGATIVE) Ur Phencyclidine Scrn (NEGATIVE) Ur Amphetamine Screen (NEGATIVE) U Methamphetamines Scrn (NEGATIVE) U Benzodiazepines Scrn (NEGATIVE) U Cocaine Metab Screen (NEGATIVE) U Marijuana (THC) Screen (NEGATIVE) Ethyl Alcohol mg/dL H. pylori IgG Antibody NEGATIVE (NEG) 01/05/18 Range/Units 09:47 WBC (4.0-11.0) K/uL RBC (4.50-5.90) M/uL Hgb (13.0-17.0) g/dL Hct (38.0-50.0) % MCV (80.0-98.0) fL MCH (27.0-32.0) pg MCHC (31.0-37.0) g/dL RDW Std Deviation (28.0-62.0) fl RDW Coeff of Fernanda (11.0-15.0) % Plt Count (150-400) K/uL MPV (7.40-12.00) fL Neut % (Auto) (48.0-80.0) % Lymph % (Auto) (16.0-40.0) % [place] % (Auto) (0.0-15.0) % Eos % (Auto) (0.0-7.0) % Baso % (Auto) (0.0-1.5) % Neut # (Auto) (1.4-5.7) K/uL Lymph # (Auto) (0.6-2.4) K/uL [place] # (Auto) (0.0-0.8) K/uL Eos # (Auto) (0.0-0.7) K/uL Baso # (Auto) (0.0-0.1) K/uL Nucleated RBC % /100WBC Nucleated RBCs # K/uL INR Sodium (136-148) mmol/L Potassium (3.5-5.1) mmol/L Chloride (98-107) mmol/L Carbon Dioxide (21.0-32.0) mmol/L BUN (7.0-18.0) mg/dL Creatinine (0.8-1.3) mg/dL Est Cr Clr Drug Dosing Estimated GFR (MDRD) ml/min Glucose (74-106) mg/dL Calcium (8.5-10.1) mg/dL Total Bilirubin (0.2-1.0) mg/dL AST (15-37) IU/L ALT (14-63) IU/L Alkaline Phosphatase (46-116) U/L Total Protein (6.4-8.2) g/dL Albumin (3.4-5.0) g/dL Globulin (2.0-3.5) g/dL Albumin/Globulin Ratio (1.3-2.8) Amylase (25-115) U/L Lipase (73-393) U/L Urine Color Urine Appearance Urine pH (5.0-8.0) Ur Specific Bruning (1.001-1.035) Urine Protein (NEGATIVE) mg/dL Urine Glucose (UA) (NEGATIVE) mg/dL Urine Ketones (NEGATIVE) mg/dL Urine Occult Blood (NEGATIVE) Urine Nitrite (NEGATIVE) Urine Bilirubin (NEGATIVE) Urine Urobilinogen (<2.0) EU/dL Ur Leukocyte Esterase (NEGATIVE) Urine RBC (0-2/HPF) Urine WBC (0-5/HPF) Ur Epithelial Cells (NONE-FEW) Urine Bacteria (NEGATIVE) Urine Mucus (NONE-MOD) Urine Opiates Screen (NEGATIVE) Ur Oxycodone Screen (NEGATIVE) Urine Methadone Screen (NEGATIVE) Ur Barbiturates Screen (NEGATIVE) Ur Phencyclidine Scrn (NEGATIVE) Ur Amphetamine Screen (NEGATIVE) U Methamphetamines Scrn (NEGATIVE) U Benzodiazepines Scrn (NEGATIVE) U Cocaine Metab Screen (NEGATIVE) U Marijuana (THC) Screen (NEGATIVE) Ethyl Alcohol 22 mg/dL H. pylori IgG Antibody (NEG) Meds: Medications Generic Name Dose Route Start Last Admin Trade Name Freq PRN Reason Stop Dose Admin Sodium Chloride 10 ml 08/28/18 09:33 01/05/18 09:42 Saline Flush FLUSH 10 ml ASDIRECTED PRN Administration Keep Vein Open Sodium Chloride 2.5 ml 01/05/18 09:33 01/05/18 09:42 Saline Flush FLUSH 2.5 ml ASDIRECTED PRN Administration Keep Vein Open Discontinued Medications Generic Name Dose Route Start Last Admin Trade Name Rustamq PRN Reason Stop Dose Admin Sodium Chloride 1,000 mls @ 999 mls/hr 01/05/18 09:32 01/05/18 09:42 Normal Saline IV 01/05/18 10:32 999 mls/hr STAT ONE Administration Morphine Sulfate 2 mg 01/05/18 09:37 01/05/18 09:56 Morphine IVPUSH 01/05/18 09:38 2 mg ONETIME ONE Administration Ondansetron HCl 4 mg 01/05/18 09:33 01/05/18 09:41 Zofran IVPUSH 01/05/18 09:34 4 mg ONETIME ONE Administration Pantoprazole Sodium 80 mg 01/05/18 09:32 01/05/18 09:41 Protonix Iv IVPUSH 01/05/18 09:33 80 mg .BOLUS ONE Administration Departure - Departure Time of Disposition: 10:56 Disposition: Home, Self-Care 01 Condition: Good Clinical Impression: Vomiting, Diarrhea Gastritis Qualifiers: Gastritis type: other gastritis Chronicity: unspecified Gastritis bleeding: without bleeding Qualified Code(s): K29.60 - Other gastritis without bleeding - Discharge Information Referrals: PCP,None [Primary Care Provider] - Forms: ED Department Discharge Additional Instructions: The following information is given to patients seen in the emergency department who are being discharged to home. This information is to outline your options for follow-up care. We provide all patients seen in our emergency department with a follow-up referral. The need for follow-up, as well as the timing and circumstances, are variable depending upon the specifics of your emergency department visit. If you don't have a primary care physician on staff, we will provide you with a referral. We always advise you to contact your personal physician following an emergency department visit to inform them of the circumstance of the visit and for follow-up with them and/or the need for any referrals to a consulting specialist. The emergency department will also refer you to a specialist when appropriate. This referral assures that you have the opportunity for followup care with a specialist. All of these measure are taken in an effort to provide you with optimal care, which includes your followup. Under all circumstances we always encourage you to contact your private physician who remains a resource for coordinating your care. When calling for followup care, please make the office aware that this follow-up is from your recent emergency room visit. If for any reason you are refused follow-up, please contact the [facility] emergency department at and ask to speak to the emergency department charge nurse. [facility] Primary care- Internal Medicine and Family [address] [address] Please fill your prescription and take medications as directed. Avoid caffeine and alcohol and [id number] anti-inflammatory/aspirin use for the next 3 days. Please call and schedule follow-up appointment in our clinic for reevaluation and further care and return to ER as needed and as discussed. Eat bland bites and push hydration as we discussed - My Orders Last 24 Hours: My Active Orders 01/05/18 09:32 Saline Lock Insert [OM.PC] Stat 01/05/18 09:33 Sodium Chloride 0.9% [Saline Flush] 10 ml FLUSH ASDIRECTED PRN Sodium Chloride 0.9% [Saline Flush] 2.5 ml FLUSH ASDIRECTED PRN 01/05/18 09:34 DRUG SCREEN, URINE [URCHEM] Stat UA W/MICROSCOPIC [URIN] Stat 01/05/18 09:59 Fecal Occult Blood Collection [RC] ASDIRECTED - Assessment/Plan Last 24 Hours: My Active Orders 01/05/18 09:32 Saline Lock Insert [OM.PC] Stat 01/05/18 09:33 Sodium Chloride 0.9% [Saline Flush] 10 ml FLUSH ASDIRECTED PRN Sodium Chloride 0.9% [Saline Flush] 2.5 ml FLUSH ASDIRECTED PRN 01/05/18 09:34 DRUG SCREEN, URINE [URCHEM] Stat UA W/MICROSCOPIC [URIN] Stat 01/05/18 09:59 Fecal Occult Blood Collection [RC] ASDIRECTED
[2018-01-05 10:30] LABS: CHLORIDE,CL 104 mmol/L (98-107); SODIUM,NA 138 mmol/L (136-148)
--- NOTE | 2018-01-05 10:42 | CR ---
EXAMINATION: Chest and abdominal series HISTORY: Pain COMPARISON: None TECHNIQUE: PA chest and AP and upright views of the abdomen FINDINGS: The lungs are clear. No focal consolidation or pleural effusion. Cardiomediastinal silhouet te is normal. There is no free air under the diaphragm. There is a nonobstructive bowel gas pattern with a small am ount stool and gas within the colon and rectum. No definite nephrolithiasis.. No organomegaly. Visual ized osseous structures appear normal. IMPRESSION: No acute findings identified.
[2018-01-05 10:57] VITALS: BP 118/76
== END 2018-01-05 11:16 | disposition home or self-care (01) ==
LOC: MW.ED 09:11
DX: K29.60 Other gastritis without bleeding (principal); F17.210 Nicotine dependence, cigarettes, uncomplicated; Z91.018 Allergy to other foods; Z88.1 Allergy status to other antibiotic agents
CPT/HCPCS: 36415; 74022; 80053; 80305; 81001; 82150; 83690; 85025; 85610; 86677; 96361; 96374; 96375; 99284; C9113; G0480; J2270; J2405; J7040; 99283

== ENCOUNTER 2020-10-11 18:25 | Emergency (ER) | payer SELFPAY ==
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
[2020-10-11] MEDS ORDERED: Nicotine 21 MG/24 Hr Patch TRDERM ONE (18:42)
[2020-10-11 20:01] VITALS: BP 151/93; PULSE 130
== END 2020-10-11 20:01 | disposition home or self-care (01) ==
LOC: MW.ED 18:25
DX: T40.2X1A Poisoning by other opioids, accidental (unintentional), initial encounter (principal)
CPT/HCPCS: 99284; A9270

== ENCOUNTER 2021-04-18 10:45 | Emergency (ER) | payer SELFPAY ==
[2021-04-18] MEDS ORDERED: Acetaminophen/oxyCODONE 325-5 MG Tab PO ONE (11:14)
[2021-04-18] MEDS ORDERED: Benzocaine 20% Topical Spray UD MUCMEM ONE (11:14)
[2021-04-18] MEDS ORDERED: Lidocaine 2% Viscous Solution 15 ML Cup PO ONE (11:14)
--- NOTE | 2021-04-18 11:21 | EDM.PDOC ---
ED HPI GENERAL MEDICAL PROBLEM - General Chief Complaint: ENT Problem Stated Complaint: ABSCESS ON L SIDE OF MOUTH Time Seen by Provider: 04/18/21 10:47 Source of Information: Reports: Patient History Limitations: Reports: No Limitations - History of Present Illness INITIAL COMMENTS - FREE TEXT/NARRATIVE: HISTORY AND PHYSICAL: History of present illness: Patient is a 41-year-old male who presents emergency room today with concern of dental infection starting 2 hours prior to arrival to the emergency room. Patient states that 10 years ago he had a filling on the affected tooth and the filling fell out 2 weeks ago. Patient states that starting today, he started having swelling adjacent to the tooth. Patient states he understands he needs to follow-up with a dentist but came here to the emergency room today. Patient states he has been able to eat and drink but she was on the other side of his mouth. Denies any other associated symptoms. Patient denies fever, chills, chest pain, shortness of breath, or cough. Denies headache, neck stiff ness, change in vision, syncope, or near syncope. Denies nausea, vomiting, abdominal pain, diarrhea, constipation, or dysuria. Has not noted any blood in urine or stool. Patient has been eating and drinking appropriately. Review of systems: As per history of present illness and below otherwise all systems reviewed and negative. Past medical history: As per history of present illness and as reviewed below otherwise noncontributory. Surgical history: As per history of present illness and as reviewed below otherwise noncontributory. Social history: See social history for further information Family history: As per history of present illness and as reviewed below otherwise noncontributory. Physical exam: General: Patient is alert, oriented, and in no acute distress. Patient sitting comfortably on exam table. Vitals stable and reviewed by me. HEENT: Tooth #19 is fractured/eroded to the gumline with adjacent edema of the mandible with pain to palpation of this area. No obvious drainable abscess at this time. Otherwise, generalized poor dentition. Atraumatic, normocephalic, pupils equal and reactive bilaterally, negative for conjunctival pallor or scleral icterus, mucous membranes moist, throat clear, neck supple, nontender, trachea midline. No drooling or trismus noted. No meningeal signs. No hot potato voice noted. Lungs: Clear to auscultation, breath sounds equal bilaterally, chest nontender. Heart: S1S2, regular rate and rhythm without overt murmur Abdomen: Soft, nondistended, nontender. Negative for masses or hepatosplenomegaly. Negative for costovertebral tenderness. Pelvis: Stable nontender. Genitourinary: Deferred. Rectal: Deferred. Skin: Intact, warm, dry. No lesions or rashes noted. Extremities: Atraumatic, negative for cords or calf pain. Neurovascular unremarkable. Neuro: Awake, alert, oriented. Cranial nerves II through XII unremarkable. Cerebellum unremarkable. Motor and sensory unremarkable throughout. Exam nonfocal. Medical Decision Making: Signs and symptoms that would prompt return to the ED thoroughly discussed with patient. Discussed importance for follow-up with a dentist. Voices understanding and is agreeable to plan of care. Denies any further questions or concerns at this time. Diagnostics: None Therapeutics: Percocet tab Prescription: Augmentin, Tramadol (12 tabs) Impression: Dental infection Plan: 1. Please take medication as prescribed. [facility] Caution when taking tramadol as this medication does cause drowsiness and sedation. Do not take this medication while driving a vehicle or operating any heavy equipment as discussed. Caution when taking this medication outside of the home. 2. Tylenol and/or ibuprofen as directed and as needed for pain management. 3. "Tooth Balls" have been given to you; apply along the gumline every 2-3 hours as needed. Do not swallow these; external use only. 4. Follow-up with a dentist for definitive care. Return to the ED as needed and as discussed. Definitive disposition and diagnosis as appropriate pending reevaluation and review of above. Treatments ENZYME CHEMIST: Reports: NSAIDS L side mouth Pain Score (Numeric/FACES): 10 - Related Data Allergies Allergy/AdvReac Type Severity Reaction Status Date / Time azithromycin [From Zithromax] Allergy Anaphylactic Verified 04/18/21 10:50 Shock grapefruit Allergy Swelling Verified 04/18/21 10:50 Home Meds: Home Meds Amoxicillin/Potassium Clav [Augmentin 875-125 Tablet] 1 each PO BID 10 Days #20 tablet 04/18/21 [Rx] traMADol [Ultram] 50 mg PO Q6H PRN #12 tab 04/18/21 [Rx] Past Medical History - Past Health History Medical/Surgical History: Denies Medical/Surgical History HEENT History: Reports: None Cardiovascular History: Reports: None Respiratory History: Reports: None Gastrointestinal History: Reports: None Genitourinary History: Reports: None Musculoskeletal History: Reports: Fracture Neurological History: Reports: None Psychiatric History: Reports: Anxiety, PTSD Endocrine/Metabolic History: Reports: None Hematologic History: Reports: None Immunologic History: Reports: None Oncologic (Cancer) History: Reports: Lymphoma Dermatologic History: Reports: None - Infectious Disease History Infectious Disease History: Reports: Chicken Pox - Past Surgical History Head Surgeries/Procedures: Reports: None HEENT Surgical History: Reports: Oral Surgery Musculoskeletal Surgical History: Reports: ORIF Other Musculoskeletal Surgeries/Procedures:: R 5th metacarpal Oncologic Surgical History: Reports: None Social & Family History - Family History Family Medical History: No Pertinent Family History - Tobacco Use Tobacco Use Status *Q: Current Every Day Tobacco User Years of Tobacco use: 23 Packs/Tins Daily: 1 - Caffeine Use Caffeine Use: Reports: Coffee - Recreational Drug Use Recreational Drug Use: Yes Drug Use in Last 12 Months: Yes Recreational Drug Type: Reports: Marijuana/Hashish Recreational Drug Use Frequency: Weekly ED ROS GENERAL - Review of Systems Review Of Systems: Comprehensive ROS is negative, except as noted in HPI. ED EXAM, GENERAL - Physical Exam Exam: See Below (see dictation) Course - Vital Signs Last Recorded V/S: Last Vital Signs Temp 97.6 F 04/18/21 10:50 Pulse 96 04/18/21 10:50 Resp 20 04/18/21 10:50 BP 143/98 H 04/18/21 10:50 Pulse Ox 99 04/18/21 10:50 - Orders/Labs/Meds Meds: Medications Discontinued Medications Generic Name Dose Route Start Last Admin Trade Name Freq PRN Reason Stop Dose Admin Benzocaine 2 each 04/18/21 11:14 Benzocaine 20% Topical [place] Ud MUCMEM 04/18/21 11:15 ONETIME ONE Lidocaine HCl 15 ml 04/18/21 11:14 Lidocaine 2% Viscous Solution 15 Ml Cup PO 04/18/21 11:15 ONETIME ONE Oxycodone/Acetaminophen 1 tab 04/18/21 11:14 Acetaminophen/Oxycodone 325-5 Mg Tab PO 04/18/21 11:15 ONETIME ONE Departure - Departure Time of Disposition: 11:16 Disposition: Home, Self-Care 01 Clinical Impression: Dental infection - Discharge Information Prescriptions: Amoxicillin/Potassium Clav [Augmentin 875-125 Tablet] 1 each PO BID 10 Days #20 tablet traMADol [Ultram] 50 mg PO Q6H PRN #12 tab PRN Reason: Pain (Severe 7-10) Additional Instructions: The following information is given to patients seen in the emergency department who are being discharged to home. This information is to outline your options for follow-up care. We provide all patients seen in our emergency department with a follow-up referral. The need for follow-up, as well as the timing and circumstances, are variable depending upon the specifics of your emergency department visit. If you don't have a primary care physician on staff, we will provide you with a referral. We always advise you to contact your personal physician following an emergency department visit to inform them of the circumstance of the visit and for follow-up with them and/or the need for any referrals to a consulting specialist. The emergency department will also refer you to a specialist when appropriate. This referral assures that you have the opportunity for follow-up care with a specialist. All of these measure are taken in an effort to provide you with optimal care, which includes your follow-up. Under all circumstances we always encourage you to contact your private physician who remains a resource for coordinating your care. When calling for follow-up care, please make the office aware that this follow-up is from your recent emergency room visit. If for any reason you are refused follow-up, please contact the [facility] Emergency Department at and asked to speak to the emergency department charge nurse. [facility] [address] [place] [id number] [address] 1. Please take medication as prescribed. [facility] Caution when taking tramadol as this medication does cause drowsiness and sedation. Do not take this medication while driving a vehicle or operating any heavy equipment as discussed. Caution when taking this medication outside of the home. 2. Tylenol and/or ibuprofen as directed and as needed for pain management. 3. "Tooth Balls" have been given to you; apply along the gumline every 2-3 hours as needed. Do not swallow these; external use only. 4. Follow-up with a dentist for definitive care. Return to the ED as needed and as discussed. Sepsis Event Note (ED) - Evaluation Sepsis Screening Result: No Definite Risk - Focused Exam Vital Signs: Vital Signs Temp Pulse Resp BP Pulse Ox 04/18/21 10:50 97.6 F 96 20 143/98 H 99
[2021-04-18 11:27] VITALS: BP 129/93; PULSE 87
== END 2021-04-18 11:28 | disposition home or self-care (01) ==
LOC: MW.ED 10:45
DX: K04.7 Periapical abscess without sinus (principal); Z88.1 Allergy status to other antibiotic agents; Z91.018 Allergy to other foods; Z72.0 Tobacco use
CPT/HCPCS: 99282; A9270

== ENCOUNTER 2021-06-04 12:14 | Emergency (ER) | payer SELFPAY ==
[2021-06-04 13:24] VITALS: BP 141/91; PULSE 113
== END 2021-06-04 13:24 | disposition home or self-care (01) ==
LOC: MW.ED 12:14
DX: K04.7 Periapical abscess without sinus (principal); Z88.1 Allergy status to other antibiotic agents; Z91.018 Allergy to other foods
CPT/HCPCS: 99282

== ENCOUNTER 2022-12-25 06:17 | Emergency (ER) | payer MEDICAID, OTHER ==
[2022-12-25] MEDS ORDERED: Cyclobenzaprine 10 MG Tab PO ONE (06:32)
[2022-12-25] MEDS ORDERED: Ketorolac 30 MG/ML SDV IM ONE (06:32)
[2022-12-25 06:35] VITALS: BP 144/66; PULSE 105
[2022-12-25] MEDS ORDERED: Lidocaine 4% 1 each Patch TOP STA (07:01)
== END 2022-12-25 08:50 | disposition home or self-care (01) ==
LOC: MW.ED 06:17
DX: S46.911A Strain of unspecified muscle, fascia and tendon at shoulder and upper arm level, right arm, initial encounter (principal); R07.89 Other chest pain; Z88.1 Allergy status to other antibiotic agents; Z91.018 Allergy to other foods; V49.50XA Passenger injured in collision with unspecified motor vehicles in traffic accident, initial encounter; Y92.410 Unspecified street and highway as the place of occurrence of the external cause
CPT/HCPCS: 71101; 73030; 96372; 99284; A9270; J1885; 99283

== ENCOUNTER 2024-05-23 22:15 | Emergency (ER) | payer MEDICAID ==
[2024-05-23 22:46] LABS: BASOPHILS ABSOLUTE AUTO 0.02 K/uL (0.00-0.20); BASOPHILS PERCENT AUTO 0.3 % (0.0-1.0); EOSINOPHILS ABSOLUTE AUTO 0.01 K/uL (0.00-0.45); EOSINOPHILS PERCENT AUTO 0.2 % (0.0-6.0); HEMOGLOBIN 13.4 g/dL (14.0-18.0); IMMATURE GRAN ABSOLUTE AUTO 0.01 K/uL (0.00-0.05); IMMATURE GRAN PERCENT AUTO 0.2 % (0.0-0.4); LYMPHOCYTES ABSOLUTE AUTO 0.99 K/uL (1.00-4.80); LYMPHOCYTES PERCENT AUTO 15.4 % (24.0-44.0); MEAN CORPUSCULAR HEMOGLOBIN 34.1 pg (28.0-32.0); MEAN CORPUSCULAR HGB CONC 36.2 g/dL (32.0-36.0); MEAN CORPUSCULAR VOLUME 94.1 fL (83.0-99.0); MEAN PLATELET VOLUME 9.5 fL (9.4-12.4); MONOCYTES ABSOLUTE AUTO 0.87 K/uL (0.00-0.80); MONOCYTES PERCENT AUTO 13.6 % (0.0-8.0); NEUTROPHILS ABSOLUTE AUTO 4.52 K/uL (1.80-7.70); NEUTROPHILS PERCENT AUTO 70.3 % (41.0-71.0); PLATELET COUNT,PLT 109 K/uL (150-400); RED BLOOD CELL COUNT 3.93 M/uL (4.52-5.90); WHITE BLOOD CELL COUNT,WBC 6.42 K/uL (3.9-11.3)
[2024-05-23] MEDS: Nicotine 21 MG/24 Hr Patch TRDERM ONE (22:50)
[2024-05-23 23:09] LABS: A/G RATIO 1.1 (0.9-1.6); ALBUMIN 4.2 g/dL (3.4-5.0); BILIRUBIN TOTAL 0.8 mg/dL (0.2-1.0); CALCIUM 9.1 mg/dL (8.5-10.1); CARBON DIOXIDE,CO2 25.3 mmol/L (21.0-32.0); CREATININE 0.8 mg/dL (0.8-1.3); EST CRCL DRUG DOSING (CG) 120.96 mL/min; POTASSIUM,K 3.6 mmol/L (3.5-5.1); PROTEIN TOTAL,TP 7.9 g/dL (6.4-8.2)
[2024-05-23 23:31] VITALS: BP 121/65; PULSE 118
== END 2024-05-23 23:31 ==
LOC: MW.ED 22:15
DX: Z02.89 Encounter for other administrative examinations (principal); R07.89 Other chest pain; Z75.8 Other problems related to medical facilities and other health care; Z88.1 Allergy status to other antibiotic agents; Z91.018 Allergy to other foods
CPT/HCPCS: 36415; 71045; 80053; 84484; 85025; 93005; 99285; A9270; 93010; 99283

== ENCOUNTER 2024-07-21 22:39 | Emergency (ER) | payer MEDICAID ==
[2024-07-21] MEDS ORDERED: Amoxicillin/Clavulanate K 875-125 MG Tab PO ONE (23:27)
[2024-07-21] MEDS: Lidocaine 2% Viscous Solution 15 ML UD PO ONE (23:45)
[2024-07-21] MEDS: Benzocaine 20% Topical Spray UD MUCMEM ONE (23:45)
[2024-07-21] MEDS: Ketorolac 30 MG/ML SDV IM ONE (23:46)
[2024-07-21] MEDS: Clindamycin HCl 150 MG Cap PO ONE (23:46)
[2024-07-22] VITALS: BP 130/78; PULSE 100
== END 2024-07-21 22:55 | disposition home or self-care (01) ==
LOC: MW.ED 22:39
DX: K04.7 Periapical abscess without sinus (principal); Z88.1 Allergy status to other antibiotic agents; Z91.018 Allergy to other foods; Z79.899 Other long term (current) drug therapy
CPT/HCPCS: 96372; 99282; A9270; J1885

== ENCOUNTER 2025-01-24 19:54 | Emergency (ER) | payer MEDICAID ==
[2025-01-24 20:30] VITALS: BP 114/77; PULSE 87
== END 2025-01-24 21:48 | disposition left against medical advice (07) ==
LOC: MW.ED 19:54
DX: Z53.21 Procedure and treatment not carried out due to patient leaving prior to being seen by health care provider (principal)

== ENCOUNTER 2025-01-25 11:47 | Emergency (ER) | payer MEDICAID ==
[2025-01-25] MEDS ORDERED: Sodium Chloride 0.9% 10 ML Syringe FLUSH PRN (11:58)
[2025-01-25] MEDS ORDERED: Sodium Chloride 0.9% 2.5 ML Syringe FLUSH PRN (11:58)
[2025-01-25 12:23] LABS: BASOPHILS ABSOLUTE AUTO 0.02 K/uL (0.00-0.20); BASOPHILS PERCENT AUTO 0.2 % (0.0-1.0); EOSINOPHILS ABSOLUTE AUTO 0.17 K/uL (0.00-0.45); EOSINOPHILS PERCENT AUTO 1.7 % (0.0-6.0); IMMATURE GRAN ABSOLUTE AUTO 0.03 K/uL (0.00-0.05); IMMATURE GRAN PERCENT AUTO 0.3 % (0.0-0.4); LYMPHOCYTES ABSOLUTE AUTO 1.43 K/uL (1.00-4.80); LYMPHOCYTES PERCENT AUTO 14.4 % (24.0-44.0); MEAN PLATELET VOLUME 9.4 fL (9.4-12.4); MONOCYTES ABSOLUTE AUTO 1.08 K/uL (0.00-0.80); MONOCYTES PERCENT AUTO 10.9 % (0.0-8.0); NEUTROPHILS ABSOLUTE AUTO 7.22 K/uL (1.80-7.70); NEUTROPHILS PERCENT AUTO 72.5 % (41.0-71.0); NRBC ABSOLUTE 0.00 K/uL (0.00-0.02); NRBC PERCENT 0.0 /100WBC (0.0-0.2); PLATELET COUNT,PLT 176 K/uL (150-400); RED BLOOD CELL COUNT 4.87 M/uL (4.52-5.90); WHITE BLOOD CELL COUNT,WBC 9.95 K/uL (3.9-11.3)
[2025-01-25] MEDS: Lactated Ringers 1,000 ML IV ONE (12:26)
[2025-01-25] MEDS: methylPREDNISolone Sodium Succinate 125 MG/2 ML SDV IVPUSH ONE (12:28)
[2025-01-25] MEDS: cefTRIAXone 2 GM in Water For Injection, Sterile 20 ML IVPUSH ONE (12:28)
[2025-01-25 12:51] LABS: APPEARANCE,URINE CLEAR; GLUCOSE,URINE NEGATIVE (NEGATIVE); OCCULT BLOOD,URINE NEGATIVE (NEGATIVE)
[2025-01-25 12:53] LABS: A/G RATIO 1.1 (0.9-1.6); ALANINE AMINOTRANSFERASE,ALT 92.0 IU/L (14-63); ASPARTATE AMNIOTRANSFERASE,AST 55.0 IU/L (15-37); BILIRUBIN TOTAL 0.4 mg/dL (0.2-1.0); BLOOD UREA NITROGEN,BUN 11.0 mg/dL (7.0-18.0); CARBON DIOXIDE,CO2 28.2 mmol/L (21.0-32.0); CHLORIDE,CL 103.0 mmol/L (98-107); CREATININE 1.0 mg/dL (0.8-1.3); EST CRCL DRUG DOSING (CG) 78.67 mL/min; GLUCOSE RANDOM 105.0 mg/dL (74-106); POTASSIUM,K 4.5 mmol/L (3.5-5.1); PROTEIN TOTAL,TP 7.8 g/dL (6.4-8.2); SODIUM,NA 140.0 mmol/L (136-148)
[2025-01-25 13:00] LABS: AMPHETAMINES SCREEN, URINE NEGATIVE (CUTOFF=500); BUPRENORPHINE SCREEN,URINE NEGATIVE (CUTOFF=10); METHADONE SCREEN, URINE NEGATIVE (CUTOFF=200); METHAMPHETAMINES SCREEN, URINE NEGATIVE (CUTOFF=500); OXYCODONE SCREEN,URINE NEGATIVE (CUT0FF=100); PCP SCREEN,URINE NEGATIVE (CUTOFF=25); THC SCREEN,URINE 20 NG/ML NEGATIVE (CUTOFF=50)
[2025-01-25 13:01] LABS: LACTIC ACID 1.4 mmol/L (0.4-2.0)
[2025-01-25 13:06] LABS: EPITHELIAL CELLS,URINE NOT SEEN (NONE-FEW)
[2025-01-25 13:12] LABS: ESTIMATED GFR 95.0 mL/min (>60)
[2025-01-25] MEDS: Iopamidol 755 MG/ML 500 ML Multipack Bottle IVPUSH STA (14:27)
[2025-01-25 16:09] VITALS: BP 118/77
[2025-01-25 16:11] VITALS: PULSE 92
== END 2025-01-25 16:26 | disposition home or self-care (01) ==
LOC: MW.ED 11:47
DX: J44.0 Chronic obstructive pulmonary disease with (acute) lower respiratory infection (principal); J18.9 Pneumonia, unspecified organism; Z79.899 Other long term (current) drug therapy; Z88.1 Allergy status to other antibiotic agents; Z91.018 Allergy to other foods
CPT/HCPCS: 36415; 71046; 71260; 80053; 80305; 81001; 83605; 85025; 87040; 94640; 96361; 96365; 96366; 96375; 99285; A4216; A9270; J0696; J1271; J2919; J7120; J7620; Q9967